=== PATIENT | male | born 2000 | race African-American/Black ===

== ENCOUNTER 2023-05-27 21:28 | Emergency (ER) | payer MEDICAID, OTHER ==
[~2023-05-27] VITALS: Ht 195.6 cm; Wt 90.0 kg
[2023-05-27 21:53] VITALS: O2SAT 100
[2023-05-27 22:57] LABS: BASOPHILS % 0.5 % (0.0-2.0); EOSINOPHILS % 3.1 % (0.0-5.0); HEMOGLOBIN. 14.4 g/dL (14.0-18.0); LYMPHOCYTES % 26.6 % (20.0-50.0); MEAN CORPUSCULAR HEMOGLOBIN 26.7 pg (28.0-32.0); MEAN CORPUSCULAR VOLUME 81.7 fL (80.0-94.0); MEAN PLATELET VOLUME 9.1 fl (7.4-10.4); MONOCYTES % 9.5 % (2.0-8.0); NEUTROPHILS % 60.3 % (40.0-76.0); PLATELET 214 x1000/uL (130-400); RED BLOOD CELL COUNT 5.39 mill/uL (4.7-6.1); RED CELL DISTRIBUTION WIDTH 15.1 % (11.6-14.6)
[2023-05-27 23:02] LABS: CHLORIDE 110 mEq/L (98-107)
[2023-05-28 01:05] VITALS: BP 126/55; PULSE 52; RESP 16; TEMP 97.9
== END 2023-05-28 01:10 | disposition home or self-care (01) ==
LOC: ER 21:28
DX: R11.2 Nausea with vomiting, unspecified (principal); R19.7 Diarrhea, unspecified; F32.9 Major depressive disorder, single episode, unspecified
CPT/HCPCS: 36415; 80053; 85025; 99283

== ENCOUNTER 2025-03-05 04:18 | Emergency (ER) | payer OTHER, MEDICAID ==
[~2025-03-05] VITALS: Ht 195.6 cm; Wt 107.0 kg
[2025-03-05 04:32] VITALS: O2SAT 100
[2025-03-05] MEDS ORDERED: IBUP-2028 PO (06:03)
[2025-03-05] MEDS: IBUPROFEN 800MG TABLET PO ONE (06:25)
[2025-03-05] MEDS: METOCLOPRAMIDE HCL 10MG TABLET PO ONE (06:25)
[2025-03-05] MEDS: ACETAMINOPHEN 325MG TABLET PO ONE (06:26)
[2025-03-05 07:04] VITALS: BP 113/69; PULSE 100; RESP 53; TEMP 36.8; O2SAT 100
== END 2025-03-05 07:08 | disposition home or self-care (01) ==
LOC: ER 04:18
DX: R51.9 Headache, unspecified (principal); F41.9 Anxiety disorder, unspecified
CPT/HCPCS: 99284; J8597